=== PATIENT | male | born 1945 | race Caucasian/White ===

== ENCOUNTER 2016-08-05 04:57 | Emergency (ER) | payer OTHER ==
[2016-08-05] MEDS ORDERED: 0.9 % SODIUM CHLORIDE 1,000 ML IV ONE (05:00)
[2016-08-05 05:21] LABS: BASOPHILS % 0.2 (0.0-1.5); EOSINOPHILS % 0.7 % (0.0-6.8); LYMPHOCYTES # 0.6 # k/uL (0.6-4.0); MEAN CORPUSCULAR HEMOGLOBIN 32.8 pg (28.0-34.0); MONOCYTES # 0.3 # k/uL (0.0-0.9); MONOCYTES % 2.4 % (0.0-11.0)
[2016-08-05] MEDS: 0.9 % SODIUM CHLORIDE 500 ML IV ONE (05:50)
[2016-08-05] MEDS: ASPIRIN 81 MG CHEW TAB PO ONE (06:00)
--- NOTE | 2016-08-05 06:05 | ED Physician Documentation ---
General Adult - HISTORIAN Historian: paramedics, other (family) - HPI Stated Complaint: Dyspnea, productive cough Chief Complaint: General Adult Further Comments: yes (70 year old male brought in via EMS with complaints of SOB. No family with patient. Annette historian.) - ROS CONST: recent illness (Discharged from [place] on 07/27) EYES/ENT: none CVS/RESP: none GI/: none MS/SKIN/LYMPH: none - PAST HX Past History: COPD, CHF, hypertension, other (Metastatic large cell neuroendocrine Lung Ca, intracranial metastic lesions - last chemo 07/15/2016) Other History: diabetes Type 2, other (HLD, A fib) Allergies/Adverse Reactions: Allergies Allergy/AdvReac Type Severity Reaction Status Date / Time No Allergy Information Allergy Verified 08/05/16 06:20 Available Home Medications: Ambulatory Orders Medication Instructions Recorded Unobtainable [Unobtainable] 08/05/16 - SOCIAL HX Smoking History: other (patient cannot answer) - FAMILY HX Family History: No - VITAL SIGNS Vital Signs: Vital Signs Temp Pulse Resp BP Pulse Ox 97.7 F 110 H 24 98/39 92 08/05/16 04:57 08/05/16 05:30 08/05/16 04:57 08/05/16 04:57 08/05/16 05:30 - REVIEWED ASSESSMENTS Nursing Assessment Reviewed: Yes Vitals Reviewed: Yes Progress - Progress Progress: Family called - spoke with son's girlfriend who reports history of Lung CA with brain mets, CHF and COPD. States patient had been living alone in [place], [place] until recently. Discharged from [place] 07/27/2016, she was unsure of diagnosis or treatments. Patient unable to answer questions regarding health history. 0615 Call to [place], case discussed with Dr Herman - accepted for transfer. 06 Family arrived with paperwork from [place], able to obtain history. Discussed code status with son and brother. Family wishes to make patient DNR. Family states patient is very hard of hearing, uses white board to communicate. Finger stick glucose 55 - D50 given and d51/2 started at 75c/hr ABG called to Dr Herman - EKG/XRAY/CT EKG: rhythm (ST vs A fib, flipped T waves in II, anterior and lateral leads. Multiple EKGS, artifact; no old EKG for comparison) ED Results Lab/Radiology - Lab Results Lab Results: Lab Results 08/05/16 08/05/16 08/05/16 05:00 05:00 05:00 WBC 12.10 K/ul H K/ul (4.00-12.00) RBC 3.69 M/ul L M/ul (3.90-5.20) Hgb 12.1 g/dL g/dL (12.0-18.0) Hct 38.1 % % (37.0-53.0) MCV 103.4 fl H fl (80.0-100.0) MCH 32.8 pg pg (28.0-34.0) MCHC 31.7 g/dL g/dL (30.0-36.0) RDW 14.7 % H % (11.3-14.3) Plt Count 182 K/mm3 K/mm3 (130-400) Neut % (Auto) 90.6 % H % (39.0-79.0) Lymph % (Auto) 5.0 % L % (16.0-50.0) Kerr % (Auto) 2.4 % % (0.0-11.0) Eos % (Auto) 0.7 % % (0.0-6.8) Baso % (Auto) 0.2 (0.0-1.5) Neut # 11.0 # k/uL H # k/uL (1.4-7.7) Lymph # 0.6 # k/uL # k/uL (0.6-4.0) Kerr # 0.3 # k/uL # k/uL (0.0-0.9) Eos # 0.1 # k/uL # k/uL (0.0-0.6) Baso # 0.0 # k/uL # k/uL (0.0-0.5) Reactive Lymphs % 1.2 % % (0.0-5.0) Reactive Lymphs # 0.1 # k/uL # k/uL (0.0-0.8) Sodium 144 mmol/L mmol/L (136-145) Potassium 4.7 mmol/L mmol/L (3.5-5.0) Chloride 110 mmol/L mmol/L (98-110) Carbon Dioxide 24 mmol/L mmol/L (20-32) BUN 63 mg/dL H mg/dL (10-26) Creatinine 1.8 mg/dL H mg/dL (0.4-1.5) Estimated Creat Clear 47 Est GFR ( Amer) 48 L (60 - ) Est GFR (Non-Af Amer) 40 L (60 - ) Glucose 68 mg/dL L mg/dL (70-99) Calcium 9.6 mg/dL mg/dL (8.5-10.5) Total Bilirubin 0.1 mg/dL L mg/dL (0.2-1.2) AST 38 U/L U/L (0-41) ALT 21 U/L U/L (0-45) Alkaline Phosphatase 126 U/L H U/L (46-116) CK-MB (CK-2) 8.0 ng/mL H ng/mL (0.0-5.6) Troponin I 0.11 ng/mL H ng/mL (0.03-0.06) NT-Pro-B Natriuret Pep 2879.1 pg/mL H pg/mL (15.0-125.0) Total Protein 7.7 g/dL g/dL (6.0-8.5) Albumin 4.2 g/dL g/dL (3.0-5.5) - Radiology Radiology Impressions: Chest, AP portable History: Cough Findings: No infiltrate, effusion or pneumothorax is present. Left lower lobe atelectasis is suspected. Heart size and pulmonary vascularity are normal. Impression: Left lower lobe atelectasis. - Orders Orders: ED Orders Category Date Time Status Continuous EKG monitoring Q1H Care 08/05/16 05:22 Active Continuous Pulse Oximetry Q1H Care 08/05/16 05:[address] Saline Lock/IV NOW Care 08/05/16 05:02 Active CHEST 1 VIEW [RAD] Stat Exams 08/05/16 05:00 Taken BNP [NT-proBNP] Stat Lab 08/05/16 05:00 Completed CBC/PLATELET/DIFF Stat Lab 08/05/16 05:00 Completed CKMB Stat Lab 08/05/16 05:00 Completed CMP Stat Lab 08/05/16 05:00 Completed TROPONIN I (cTnI) Stat Lab 08/05/16 05:00 Completed 0.9 % Sodium Chloride [Normal Saline] 1,000 ml Med 08/05/16 05:00 Discontinued IV .STK-MED 0.9 % Sodium Chloride [Normal Saline] 500 ml Med 08/05/16 05:14 Discontinued IV Q1H Aspirin Med 08/05/16 05:59 Once 324 mg PO NOW ONE Oxygen Daily Oxygen 08/05/16 05:15 Ordered EKG WITH COMPARISON Stat Ther 08/05/16 05:01 Ordered General Adult Physical Exam - PHYSICAL EXAM GENERAL APPEARANCE: moderate distress EENT: eye inspection normal, JERRY, dry mucous membranes RESPIRATORY: no resp distress, chest non-tender, wheezes (bilaterally) CVS: heart sounds normal, equal pulses, no murmur, no gallop, PMI nml, no JVD, no friction rub, tachycardia ABDOMEN: soft, no organomegaly, normal bowel sounds, no abdominal bruit BACK: normal inspection, no CVA tenderness SKIN: warm/dry, pallor EXTREMITIES: non-tender, no evidence of injury, no edema, other (marked generalized weakness upper extremities 4/5; gait not assessed due to dyspnea. ) NEURO: motor nml, sensation nml, other (MAEx4, oriented to person only, purposeful movement, calm and cooperative.) Discharge Clincal Impression: AMI anterolateral wall, Acute renal insufficiency, Acidosis, metabolic, Wheezing, Generalized weakness, Hypoglycemia Large cell carcinoma of lung Qualifiers: Laterality: unspecified laterality Qualified Code(s): C34.90 - Malignant neoplasm of unspecified part of unspecified bronchus or lung Home Medications: Ambulatory Orders Unobtainable [Unobtainable] 08/05/16 Condition: Stable Disposition: 01 HOME, SELF-CARE Decision to Admit: NO Decision Time: 06:45
[2016-08-05] MEDS ORDERED: DEXTROSE 5 % IN WATER 1,000 ML IV ONE (06:34)
[2016-08-05] MEDS ORDERED: DEXTROSE 50% 50 ML DISP.SYRIN IVP ONE (06:34)
[2016-08-05] MEDS: DEXTROSE 50% 50 ML DISP.SYRIN IVP ONE (06:40)
[2016-08-05] MEDS: DEXTROSE 5 %-0.45 % NACL 1,000 ML IV SCH (06:40)
[2016-08-05] MEDS: LEVALBUTEROL HCL 1.25 MG/3 ML AMPUL.NEB NEB ONE (07:00)
[2016-08-05 07:17] VITALS: BP 110/54
--- NOTE | 2016-08-05 10:36 | Diagnostic Imaging Report ---
TAMI LIMA (SURGICAL APPLIANCE FITTER) - ER [facility] [address] [facility].[address] [id number] Report Submission Date: Aug 05, 2016 5:31:51 AM [employer] Patient Study Name: MARVA OSBORNE Date: Aug 05, 2016 5:18:07 AM [employer] Modality Type: CR Gender: M Description: CHEST : 41 Institution: [facility] Physician: TAMI LIMA (SURGICAL APPLIANCE FITTER) - ER Chest, AP portable History: Cough Findings: No infiltrate, effusion or pneumothorax is present. Left lower lobe atelectasis is suspected. Heart size and pulmonary vascularity are normal. Impression: Left lower lobe atelectasis. Electronically signed on Aug 05, 2016 5:31:51 AM [employer] by: Quinn BOLAND
[2016-08-06 06:37] LABS: ABG BASE EXCESS -10.3 (-2 - +2); ABG PH 7.21 (7.35-7.45)
== END 2016-08-05 07:00 | disposition home or self-care (01) ==
LOC: ED 04:57
DX: I21.3 ST elevation (STEMI) myocardial infarction of unspecified site (principal); C34.90 Malignant neoplasm of unspecified part of unspecified bronchus or lung; N17.9 Acute kidney failure, unspecified
CPT/HCPCS: 36600; 71010; 80053; 82553; 82803; 83880; 84484; 85025; 93005; J7030; J7070; J7614; 96360; 96361; 99283; S1016; S5010